=== PATIENT | female | born 1985 | race Caucasian/White ===

== ENCOUNTER 2017-10-19 09:38 | Emergency (ER) | payer SELFPAY ==
[~2017-10-19] VITALS: Ht 167.6 cm; Wt 87.2 kg
[2017-10-19 10:26] LABS: HEMATOCRIT 38.7 % (36.0-46.0); HEMOGLOBIN 13.6 G/DL (11.9-15.5); MCH 29.3 PG (29.0-34.0); MCHC 35.1 G/DL (30.0-36.0); MCV 83.4 FL (83-99); PLATELET COUNT 297 K/uL (156-360); RBC DIS.WIDTH-CV 12.1 % (11.8-14.6); RED BLOOD COUNT 4.64 M/uL (3.80-5.20); WHITE BLOOD COUNT 15.5 K/uL (4.1-10.2)
[2017-10-19 10:36] LABS: CHLORIDE 94 mEq/L (99-109); POTASSIUM 3.7 mEq/L (3.7-5.4); SODIUM 133 mEq/L (136-147)
[2017-10-19 11:15] LABS: ERTH.SED.RATE 104 MM/HR (0-20)
[2017-10-19] MEDS ORDERED: BACTRIM,SEPT1 TABLET PO (11:16)
[2017-10-19 11:25] LABS: C-REACTIVE PROTEIN 120.4 MG/L (0-10); CREATININE 0.5 MG/DL (0.6-1.3); GFR ESTIMATE (CALCULATED) > 59 mL/min/; GLUCOSE 549 mg/dL (70-99); UREA NITROGEN (BUN) 7 mg/dL (9-23)
[2017-10-19 12:37] VITALS: BP 144/90
== END 2017-10-19 12:40 | disposition home or self-care (01) ==
LOC: EME 09:38
PROVIDERS: Emergency Medicine Emergency Medical Services
PROC: 0H9NXZZ Drainage of Left Foot Skin, External Approach (ICD-10-PCS; principal; 2017-10-19)
DX: L02.612 Cutaneous abscess of left foot (principal); B95.61 Methicillin susceptible Staphylococcus aureus infection as the cause of diseases classified elsewhere; B95.1 Streptococcus, group B, as the cause of diseases classified elsewhere; Z16.29 Resistance to other single specified antibiotic; L03.116 Cellulitis of left lower limb; E11.9 Type 2 diabetes mellitus without complications; Z83.3 Family history of diabetes mellitus; Z88.0 Allergy status to penicillin
CPT/HCPCS: 73630; 80048; 85027; 85651; 86140; 87070; 87075; 87077; 87147; 87186; 87205; 99281; 99285

== ENCOUNTER 2017-10-28 10:46 | Inpatient (IN) | payer SELFPAY ==
[~2017-10-28] VITALS: Ht 167.6 cm; Wt 88.6 kg
[~2017-10-28 10:46] MED LIST: BACTRIM,SEPT1 TABLET PO
[2017-10-28 11:56] LABS: BASOPHIL (%) 0.5 % (0-1); BASOPHIL COUNT 0.1 K/uL (0-0.1); EOSINOPHIL (%) 0.8 % (0-5); EOSINOPHIL COUNT 0.1 K/uL (0-0.3); HEMATOCRIT 40.2 % (36.0-46.0); HEMOGLOBIN 13.7 G/DL (11.9-15.5); IMMATURE GRANULOCYTE (%) 1.3 % (0.0-0.7); LYMPHOCYTE (%) 18.3 % (15-42); MCHC 34.1 G/DL (30.0-36.0); MONOCYTE (%) 7.5 % (3-12); MONOCYTE COUNT 0.8 K/uL (0-0.8); NEUTROPHIL (%) 71.6 % (45-76); PLATELET COUNT 420 K/uL (156-360); RBC DIS.WIDTH-CV 11.8 % (11.8-14.6); RBC DIS.WIDTH-SD 35.2 % (39-53); WHITE BLOOD COUNT 11.1 K/uL (4.1-10.2)
[2017-10-28 12:07] LABS: CHLORIDE 95 mEq/L (99-109); POTASSIUM 3.7 mEq/L (3.7-5.4); SODIUM 132 mEq/L (136-147)
[2017-10-28 12:08] LABS: GLUCOSE 350 mg/dL (70-99)
[2017-10-28 12:12] LABS: CREATININE 0.7 mg/dL (0.6-1.3); GFR ESTIMATE (CALCULATED) > 59 mL/min/
[2017-10-28 12:13] LABS: UREA NITROGEN (BUN) 8 mg/dL (9-23)
[2017-10-28 13:58] LABS: APPEARANCE CLEAR ((CLEAR)); BILIRUBIN NEGATIVE; BLOOD NEGATIVE; COLOR YELLOW ((YELLOW)); GLUCOSE (STRIP) >=500; KETONES NEGATIVE; LEUKOCYTES TRACE; NITRITE NEGATIVE; PROTEIN (STRIP) NEGATIVE; SPECIFIC GRAVITY 1.041 (1.000-1.030); UROBILINOGEN 0.2 MG/DL (0.2-1.0)
[2017-10-28] MEDS ORDERED: JANUMET 50/11 TABLET PO (14:03)
[2017-10-28] MEDS ORDERED: MULTI VITAMIN1 EACH PO (14:04)
[2017-10-28] MEDS ORDERED: LEVOFLOXACIN500 MG PO (14:04)
[2017-10-28] MEDS ORDERED: SUPER B COMPL400 MCG PO (14:04)
[2017-10-28] MEDS ORDERED: VITAMIN C250 MG PO (14:04)
[2017-10-28 14:12] LABS: BACTERIA NONE SEEN /HPF; EPITHELIAL CELLS RARE /HPF; MUCUS TRACE /LPF; UCUL ADDED? NO; WHITE BLOOD CELLS 0-5 /HPF (0-5)
[2017-10-28 15:00] VITALS: BP 124/75
[2017-10-28 19:31] VITALS: BP 123/75
[2017-10-28 23:56] VITALS: BP 133/80
[2017-10-29 03:59] VITALS: BP 134/80
[2017-10-29 06:28] LABS: BASOPHIL (%) 0.7 % (0-1); BASOPHIL COUNT 0.1 K/uL (0-0.1); EOSINOPHIL (%) 0.5 % (0-5); EOSINOPHIL COUNT 0.1 K/uL (0-0.3); HEMATOCRIT 36.1 % (36.0-46.0); HEMOGLOBIN 12.2 G/DL (11.9-15.5); IMMATURE GRANULOCYTE (%) 1.2 % (0.0-0.7); LYMPHOCYTE (%) 12.8 % (15-42); LYMPHOCYTE COUNT 1.7 K/uL (1.0-2.8); MCH 27.7 PG (29.0-34.0); MCHC 33.8 G/DL (30.0-36.0); MONOCYTE (%) 10.8 % (3-12); MONOCYTE COUNT 1.4 K/uL (0-0.8); NEUTROPHIL COUNT 9.6 K/uL (1.8-6.4); PLATELET COUNT 344 K/uL (156-360); RBC DIS.WIDTH-CV 11.9 % (11.8-14.6); RBC DIS.WIDTH-SD 35.9 % (39-53); WHITE BLOOD COUNT 12.9 K/uL (4.1-10.2)
[2017-10-29 06:51] LABS: CHLORIDE 99 MEQ/L (99-109); CREATININE 1.1 MG/DL (0.6-1.3); GFR ESTIMATE (CALCULATED) > 59 mL/min/; GLUCOSE 329 mg/dL (70-99); POTASSIUM 4.1 MEQ/L (3.7-5.4); SODIUM 133 MEQ/L (136-147); UREA NITROGEN (BUN) 13 mg/dL (9-23)
[2017-10-29 07:17] VITALS: BP 133/76
[2017-10-29 11:16] VITALS: BP 133/79
[2017-10-29 15:18] VITALS: BP 123/70
[2017-10-29 19:28] VITALS: BP 139/80
[2017-10-29 23:41] VITALS: BP 138/79
[2017-10-30 02:09] LABS: BASOPHIL (%) 0.5 % (0-1); BASOPHIL COUNT 0.1 K/uL (0-0.1); EOSINOPHIL (%) 0.7 % (0-5); EOSINOPHIL COUNT 0.1 K/uL (0-0.3); HEMATOCRIT 34.7 % (36.0-46.0); IMMATURE GRANULOCYTE (%) 0.9 % (0.0-0.7); LYMPHOCYTE (%) 15.7 % (15-42); MCH 28.3 PG (29.0-34.0); MCHC 34.6 G/DL (30.0-36.0); MCV 81.8 FL (83-99); MONOCYTE (%) 9.5 % (3-12); MONOCYTE COUNT 1.2 K/uL (0-0.8); NEUTROPHIL (%) 72.7 % (45-76); NEUTROPHIL COUNT 9.4 K/uL (1.8-6.4); PLATELET COUNT 328 K/uL (156-360); RBC DIS.WIDTH-CV 11.9 % (11.8-14.6); RBC DIS.WIDTH-SD 35.7 % (39-53); RED BLOOD COUNT 4.24 M/uL (3.80-5.20); WHITE BLOOD COUNT 12.9 K/uL (4.1-10.2)
[2017-10-30 02:20] LABS: CHLORIDE 103 mEq/L (99-109); POTASSIUM 3.5 mEq/L (3.7-5.4); SODIUM 136 mEq/L (136-147)
[2017-10-30 02:22] LABS: GLUCOSE 262 mg/dL (70-99)
[2017-10-30 02:26] LABS: CREATININE 1.3 mg/dL (0.6-1.3); GFR ESTIMATE (CALCULATED) 50 mL/min/
[2017-10-30 02:27] LABS: UREA NITROGEN (BUN) 15 mg/dL (9-23)
[2017-10-30 03:58] VITALS: BP 138/79
[2017-10-30 06:55] VITALS: BP 131/76
[2017-10-30 11:53] VITALS: BP 130/81
[2017-10-30 13:58] LABS: CREATININE 1.3 MG/DL (0.6-1.3); VANCOMYCIN, TROUGH 15.3 MCG/ML (10-20)
[2017-10-30 15:39] VITALS: BP 163/94
[2017-10-30 23:05] VITALS: BP 160/90
[2017-10-31 03:14] VITALS: BP 158/96
[2017-10-31 06:14] LABS: BASOPHIL (%) 0.6 % (0-1); BASOPHIL COUNT 0.1 K/uL (0-0.1); EOSINOPHIL (%) 1.1 % (0-5); EOSINOPHIL COUNT 0.1 K/uL (0-0.3); HEMATOCRIT 33.4 % (36.0-46.0); IMMATURE GRANULOCYTE (%) 0.7 % (0.0-0.7); LYMPHOCYTE (%) 20.8 % (15-42); LYMPHOCYTE COUNT 2.5 K/uL (1.0-2.8); MCH 27.5 PG (29.0-34.0); MCHC 32.9 G/DL (30.0-36.0); MCV 83.5 FL (83-99); MONOCYTE (%) 8.8 % (3-12); MONOCYTE COUNT 1.1 K/uL (0-0.8); NEUTROPHIL COUNT 8.1 K/uL (1.8-6.4); PLATELET COUNT 301 K/uL (156-360); RBC DIS.WIDTH-CV 12.1 % (11.8-14.6); WHITE BLOOD COUNT 11.9 K/uL (4.1-10.2)
[2017-10-31 06:36] LABS: CHLORIDE 105 MEQ/L (99-109); CREATININE 1.1 MG/DL (0.6-1.3); GFR ESTIMATE (CALCULATED) > 59 mL/min/; GLUCOSE 190 mg/dL (70-99); POTASSIUM 3.7 MEQ/L (3.7-5.4); SODIUM 136 MEQ/L (136-147); UREA NITROGEN (BUN) 13 mg/dL (9-23); VANCOMYCIN, TROUGH 14.2 MCG/ML (10-20)
[2017-10-31 08:35] VITALS: BP 131/82
[2017-10-31 10:23] LABS: HEMOGLOBIN A1c (GLYCOHEMOGLOB) 12.8 % (Below 5.7)
[2017-10-31 15:35] VITALS: BP 138/79
[2017-10-31 19:30] VITALS: BP 138/85
[2017-10-31 23:16] VITALS: BP 150/88
[2017-11-01 04:16] VITALS: BP 135/85
[2017-11-01 07:35] VITALS: BP 139/86
[2017-11-01 09:45] LABS: BASOPHIL (%) 0.5 % (0-1); EOSINOPHIL (%) 1.5 % (0-5); EOSINOPHIL COUNT 0.1 K/uL (0-0.3); HEMATOCRIT 34.5 % (36.0-46.0); HEMOGLOBIN 11.4 G/DL (11.9-15.5); IMMATURE GRANULOCYTE (%) 0.6 % (0.0-0.7); LYMPHOCYTE (%) 17.8 % (15-42); LYMPHOCYTE COUNT 1.4 K/uL (1.0-2.8); MCH 27.9 PG (29.0-34.0); MCV 84.4 FL (83-99); MONOCYTE (%) 8.6 % (3-12); MONOCYTE COUNT 0.7 K/uL (0-0.8); NEUTROPHIL COUNT 5.6 K/uL (1.8-6.4); PLATELET COUNT 307 K/uL (156-360); RBC DIS.WIDTH-CV 12.2 % (11.8-14.6); RBC DIS.WIDTH-SD 37.2 % (39-53); RED BLOOD COUNT 4.09 M/uL (3.80-5.20); WHITE BLOOD COUNT 7.9 K/uL (4.1-10.2)
[2017-11-01 10:09] LABS: CHLORIDE 102 MEQ/L (99-109); CREATININE 1.1 MG/DL (0.6-1.3); GFR ESTIMATE (CALCULATED) > 59 mL/min/; GLUCOSE 207 mg/dL (70-99); POTASSIUM 3.6 MEQ/L (3.7-5.4); SODIUM 138 MEQ/L (136-147); UREA NITROGEN (BUN) 12 mg/dL (9-23)
[2017-11-01 15:37] VITALS: BP 153/83
[2017-11-01 23:36] VITALS: BP 142/98
[2017-11-02 07:49] VITALS: BP 128/73
[2017-11-02 16:17] VITALS: BP 136/80
[2017-11-03 00:43] VITALS: BP 169/96
[2017-11-03 06:10] LABS: BASOPHIL (%) 0.7 % (0-1); BASOPHIL COUNT 0.1 K/uL (0-0.1); EOSINOPHIL (%) 2.2 % (0-5); EOSINOPHIL COUNT 0.2 K/uL (0-0.3); HEMATOCRIT 33.4 % (36.0-46.0); HEMOGLOBIN 11.1 G/DL (11.9-15.5); IMMATURE GRANULOCYTE (%) 0.5 % (0.0-0.7); LYMPHOCYTE (%) 25.9 % (15-42); LYMPHOCYTE COUNT 2.6 K/uL (1.0-2.8); MCH 27.8 PG (29.0-34.0); MCHC 33.2 G/DL (30.0-36.0); MCV 83.7 FL (83-99); MONOCYTE (%) 9.8 % (3-12); NEUTROPHIL (%) 60.9 % (45-76); NEUTROPHIL COUNT 6.1 K/uL (1.8-6.4); PLATELET COUNT 303 K/uL (156-360); RBC DIS.WIDTH-SD 36.4 % (39-53); RED BLOOD COUNT 3.99 M/uL (3.80-5.20)
[2017-11-03 06:42] LABS: CHLORIDE 105 MEQ/L (99-109); GFR ESTIMATE (CALCULATED) > 59 mL/min/; GLUCOSE 145 mg/dL (70-99); POTASSIUM 3.9 MEQ/L (3.7-5.4); SODIUM 136 MEQ/L (136-147); UREA NITROGEN (BUN) 10 mg/dL (9-23)
[2017-11-03 07:07] VITALS: BP 145/95
[2017-11-03 16:30] VITALS: BP 166/90
[2017-11-03 19:16] VITALS: BP 168/80
[2017-11-03 23:26] VITALS: BP 164/80
[2017-11-04 06:34] LABS: CHLORIDE 105 MEQ/L (99-109); CREATININE 1.1 MG/DL (0.6-1.3); GFR ESTIMATE (CALCULATED) > 59 mL/min/; GLUCOSE 149 mg/dL (70-99); SODIUM 140 MEQ/L (136-147); UREA NITROGEN (BUN) 10 mg/dL (9-23)
[2017-11-04 07:52] VITALS: BP 119/75
[2017-11-04] MEDS ORDERED: CEFTRIAXONE2 G1 IV (12:26)
[2017-11-04] MEDS ORDERED: GLIPIZIDE5 MG PO (12:27)
[2017-11-04] MEDS ORDERED: LISINOPRIL5 MG PO (12:27)
[2017-11-04] MEDS ORDERED: METFORMIN HCL1000 MG PO (12:27)
== END 2017-11-04 16:29 | disposition home health service (06) | DRG 580 ==
LOC: EME 10:46 → EDOF 13:42 → 2EASTP 13:42 → ENRESERV 13:48 → 2EASTP 15:02
PROVIDERS: Family Medicine
DX: L03.116 Cellulitis of left lower limb (principal); L02.612 Cutaneous abscess of left foot; M86.172 Other acute osteomyelitis, left ankle and foot; L03.032 Cellulitis of left toe; E11.621 Type 2 diabetes mellitus with foot ulcer; L97.526 Non-pressure chronic ulcer of other part of left foot with bone involvement without evidence of necrosis; B95.1 Streptococcus, group B, as the cause of diseases classified elsewhere; E66.9 Obesity, unspecified; I10 Essential (primary) hypertension; E11.42 Type 2 diabetes mellitus with diabetic polyneuropathy; E11.628 Type 2 diabetes mellitus with other skin complications; E11.622 Type 2 diabetes mellitus with other skin ulcer; Z79.84 Long term (current) use of oral hypoglycemic drugs; Z88.0 Allergy status to penicillin; Z68.31 Body mass index [BMI] 31.0-31.9, adult; Z83.3 Family history of diabetes mellitus; Z82.3 Family history of stroke; Z81.8 Family history of other mental and behavioral disorders
CPT/HCPCS: 73630; 73720; 76937; 80048; 80202; 81003; 82565; 82948; 83036; 83605; 84702; 85025; 87040; 87070; 87075; 87077; 87186; 87205; 99281; 99285; J0690; J0696; J1170; J1644; J1815; J2405; J2543; J2710; J3010; J3370; J7030; J7050; J7120; J7643

== ENCOUNTER 2017-12-08 07:01 | Emergency (ER) | payer OTHER ==
[~2017-12-08] VITALS: Ht 167.6 cm; Wt 83.0 kg
[~2017-12-08 07:01] MED LIST changes: +CEFTRIAXONE2 G1 IV; +GLIPIZIDE5 MG PO; +JANUMET 50/11 TABLET PO; +LEVOFLOXACIN500 MG PO; +LISINOPRIL5 MG PO; +METFORMIN HCL1000 MG PO; +MULTI VITAMIN1 EACH PO; +SUPER B COMPL400 MCG PO; +VITAMIN C250 MG PO
[2017-12-08 09:21] LABS: HEMATOCRIT 34.5 % (36.0-46.0); HEMOGLOBIN 12.2 G/DL (11.9-15.5); MCHC 35.4 G/DL (30.0-36.0); MCV 79.1 FL (83-99); PLATELET COUNT 300 K/uL (156-360); RBC DIS.WIDTH-CV 12.9 % (11.8-14.6); RBC DIS.WIDTH-SD 36.7 % (39-53); RED BLOOD COUNT 4.36 M/uL (3.80-5.20); WHITE BLOOD COUNT 9.1 K/uL (4.1-10.2)
[2017-12-08 09:31] LABS: CHLORIDE 106 mEq/L (99-109); POTASSIUM 3.5 mEq/L (3.7-5.4); SODIUM 139 mEq/L (136-147)
[2017-12-08 09:32] LABS: GLUCOSE 156 mg/dL (70-99)
[2017-12-08 09:36] LABS: CREATININE 0.8 mg/dL (0.6-1.3); GFR ESTIMATE (CALCULATED) > 59 mL/min/
[2017-12-08 09:37] LABS: UREA NITROGEN (BUN) 10 mg/dL (9-23)
[2017-12-08 10:07] LABS: APPEARANCE SL.HAZY ((CLEAR)); BILIRUBIN NEGATIVE; BLOOD NEGATIVE; COLOR YELLOW ((YELLOW)); GLUCOSE (STRIP) NEGATIVE; KETONES 20; LEUKOCYTES SMALL; NITRITE NEGATIVE; PROTEIN (STRIP) 30; SPECIFIC GRAVITY 1.017 (1.000-1.030); UROBILINOGEN 0.2 MG/DL (0.2-1.0)
[2017-12-08 10:10] LABS: BACTERIA RARE /HPF; EPITHELIAL CELLS 2+ /HPF; HYALINE CASTS 20-30 /LPF; MUCUS TRACE /LPF; RED BLOOD CELLS 0-5 /HPF (0-5); UCUL ADDED? YES
[2017-12-08 13:02] VITALS: BP 143/104
== END 2017-12-08 13:13 | disposition home or self-care (01) ==
LOC: EME 07:01
PROVIDERS: Emergency Medicine
DX: R11.2 Nausea with vomiting, unspecified (principal); E11.9 Type 2 diabetes mellitus without complications; Z88.0 Allergy status to penicillin
CPT/HCPCS: 71045; 74019; 80048; 81003; 83605; 85027; 87086; 99281; 99285; J2405

== ENCOUNTER 2017-12-19 15:29 | Emergency (ER) | payer OTHER ==
[~2017-12-19] VITALS: Ht 167.6 cm; Wt 78.0 kg
[2017-12-19 16:27] LABS: HEMATOCRIT 35.8 % (36.0-46.0); HEMOGLOBIN 12.5 G/DL (11.9-15.5); MCH 27.7 PG (29.0-34.0); MCHC 34.9 G/DL (30.0-36.0); MCV 79.2 FL (83-99); PLATELET COUNT 322 K/uL (156-360); RBC DIS.WIDTH-CV 12.9 % (11.8-14.6); RED BLOOD COUNT 4.52 M/uL (3.80-5.20); WHITE BLOOD COUNT 11.6 K/uL (4.1-10.2)
[2017-12-19 16:37] LABS: ALBUMIN 4.1 g/dL (3.2-4.8); CHLORIDE 95 mEq/L (99-109); POTASSIUM 3.2 mEq/L (3.7-5.4); SODIUM 136 mEq/L (136-147)
[2017-12-19 16:39] LABS: GLUCOSE 136 mg/dL (70-99)
[2017-12-19 16:40] LABS: TOTAL PROTEIN 7.9 g/dL (6.4-8.3)
[2017-12-19 16:41] LABS: TOTAL BILIRUBIN 0.6 mg/dL (0.0-1.0)
[2017-12-19 16:43] LABS: ALKALINE PHOSPHATASE 59 IU/L (3-129); CREATININE 1.1 mg/dL (0.6-1.3); GFR ESTIMATE (CALCULATED) > 59 mL/min/
[2017-12-19 16:44] LABS: UREA NITROGEN (BUN) 14 mg/dL (9-23)
[2017-12-19 16:45] LABS: AST (GOT) 33 IU/L (2-34); DIRECT BILIRUBIN 0.2 mg/dL (0.0-0.3)
[2017-12-19 16:46] LABS: ALT (GPT) 71 IU/L (3-49); LIPASE 68 U/L (1.0-51.0)
[2017-12-19 16:52] LABS: QUANTITATIVE HCG < 4.0 MIU/ML
[2017-12-19 17:22] LABS: APPEARANCE SL.HAZY ((CLEAR)); BILIRUBIN NEGATIVE; BLOOD NEGATIVE; GLUCOSE (STRIP) NEGATIVE; KETONES NEGATIVE; LEUKOCYTES TRACE; NITRITE NEGATIVE; PROTEIN (STRIP) NEGATIVE; SPECIFIC GRAVITY 1.005 (1.000-1.030); UROBILINOGEN 0.2 MG/DL (0.2-1.0)
[2017-12-19 17:32] LABS: COLOR YELLOW ((YELLOW))
[2017-12-19 17:37] LABS: BACTERIA NONE SEEN /HPF; EPITHELIAL CELLS RARE /HPF; MUCUS TRACE /LPF; RED BLOOD CELLS 0-5 /HPF (0-5); UCUL ADDED? NO; WHITE BLOOD CELLS 0-5 /HPF (0-5)
[2017-12-19] MEDS ORDERED: ZANTAC150 MG PO (17:42)
[2017-12-19 18:03] VITALS: BP 152/99
== END 2017-12-19 18:08 | disposition home or self-care (01) ==
LOC: EME 15:29
PROVIDERS: Physician Assistant
DX: E86.0 Dehydration (principal); R11.2 Nausea with vomiting, unspecified; I95.1 Orthostatic hypotension; E11.9 Type 2 diabetes mellitus without complications; I10 Essential (primary) hypertension; Z88.0 Allergy status to penicillin
CPT/HCPCS: 80048; 80076; 81003; 83690; 84702; 85027; 93005; 99281; 99285; J7030

== ENCOUNTER 2017-12-22 21:14 | Emergency (ER) | payer OTHER ==
[~2017-12-22] VITALS: Ht 167.6 cm; Wt 79.3 kg
[~2017-12-22 21:14] MED LIST changes: +ZANTAC150 MG PO
[2017-12-22 23:00] LABS: HEMATOCRIT 33.2 % (36.0-46.0); HEMOGLOBIN 11.8 G/DL (11.9-15.5); MCH 27.8 PG (29.0-34.0); MCHC 35.5 G/DL (30.0-36.0); MCV 78.1 FL (83-99); PLATELET COUNT 373 K/uL (156-360); RBC DIS.WIDTH-CV 13.1 % (11.8-14.6); RED BLOOD COUNT 4.25 M/uL (3.80-5.20); WHITE BLOOD COUNT 11.4 K/uL (4.1-10.2)
[2017-12-22 23:07] LABS: ALBUMIN 4.1 g/dL (3.2-4.8)
[2017-12-22 23:08] LABS: CHLORIDE 101 mEq/L (99-109); POTASSIUM 3.1 mEq/L (3.7-5.4); SODIUM 138 mEq/L (136-147)
[2017-12-22 23:10] LABS: GLUCOSE 112 mg/dL (70-99); TOTAL PROTEIN 7.3 g/dL (6.4-8.3)
[2017-12-22 23:12] LABS: TOTAL BILIRUBIN 0.6 mg/dL (0.0-1.0)
[2017-12-22 23:13] LABS: ALKALINE PHOSPHATASE 57 IU/L (3-129)
[2017-12-22 23:14] LABS: CREATININE 0.9 mg/dL (0.6-1.3); GFR ESTIMATE (CALCULATED) > 59 mL/min/
[2017-12-22 23:15] LABS: UREA NITROGEN (BUN) 12 mg/dL (9-23)
[2017-12-22 23:17] LABS: ALT (GPT) 35 IU/L (3-49)
[2017-12-22 23:24] LABS: QUANTITATIVE HCG < 4.0 MIU/ML
[2017-12-22 23:39] LABS: AST (GOT) 14 IU/L (2-34)
[2017-12-23 00:04] LABS: TROP-I INTERPRETATION NEGATIVE; TROPONIN-I < 0.01 ng/mL (0.0-0.30)
[2017-12-23 00:08] LABS: APPEARANCE CLEAR ((CLEAR)); BILIRUBIN NEGATIVE; BLOOD NEGATIVE; COLOR YELLOW ((YELLOW)); GLUCOSE (STRIP) NEGATIVE; KETONES NEGATIVE; LEUKOCYTES NEGATIVE; NITRITE NEGATIVE; PROTEIN (STRIP) NEGATIVE; SPECIFIC GRAVITY 1.013 (1.000-1.030); UCUL ADDED? NO; UROBILINOGEN 0.2 MG/DL (0.2-1.0)
[2017-12-23 01:48] LABS: LIPASE 45 U/L (1.0-51.0)
[2017-12-23] MEDS ORDERED: NORCO 5/3251 TABLET PO (03:45)
[2017-12-23] MEDS ORDERED: CIPRO500 MG PO (03:45)
[2017-12-23] MEDS ORDERED: ZOFRAN4 MG PO (03:45)
[2017-12-23] MEDS ORDERED: FLAGYL500 MG PO (03:45)
[2017-12-23 03:52] VITALS: BP 156/97
== END 2017-12-23 03:53 | disposition home or self-care (01) ==
LOC: EXP 21:14 → EME 21:14 → EXP 12-23 03:53
DX: K80.20 Calculus of gallbladder without cholecystitis without obstruction (principal); R11.2 Nausea with vomiting, unspecified; E87.6 Hypokalemia; R42 Dizziness and giddiness; Z98.890 Other specified postprocedural states; I10 Essential (primary) hypertension; E11.9 Type 2 diabetes mellitus without complications; Z79.84 Long term (current) use of oral hypoglycemic drugs; Z88.0 Allergy status to penicillin
CPT/HCPCS: 74177; 76705; 80053; 81003; 83690; 84484; 84702; 85027; 93005; 99281; 99284; J2405; J7030

== ENCOUNTER → 2018-01-01 | Outpatient (CLI) | payer OTHER ==
[~2018-01-01] MED LIST changes: +AMARYL2 MG PO; +CIPRO500 MG PO; +FLAGYL500 MG PO; +K-DUR20 MEQ PO; +KEFLEX500 MG PO; +NORCO 5/3251 TABLET PO; +PERCOCET 5/31 TABLET PO; +ZOFRAN ODT4 MG PO; +ZOFRAN4 MG PO
== END | disposition home or self-care (01) ==
LOC: NUC 09:08
DX: K82.8 Other specified diseases of gallbladder (principal)
CPT/HCPCS: 78226; A9537; J2270

== ENCOUNTER 2018-01-02 19:38 | Emergency (ER) | payer OTHER ==
[~2018-01-02] VITALS: Ht 167.6 cm; Wt 76.0 kg
[~2018-01-02 19:38] MED LIST changes: -AMARYL2 MG PO; -K-DUR20 MEQ PO; -KEFLEX500 MG PO; -PERCOCET 5/31 TABLET PO; -ZOFRAN ODT4 MG PO
[2018-01-02 20:03] LABS: HEMATOCRIT 34.2 % (36.0-46.0); MCH 27.4 PG (29.0-34.0); MCHC 35.1 G/DL (30.0-36.0); MCV 78.1 FL (83-99); PLATELET COUNT 318 K/uL (156-360); RBC DIS.WIDTH-CV 13.6 % (11.8-14.6); RBC DIS.WIDTH-SD 38.5 % (39-53); RED BLOOD COUNT 4.38 M/uL (3.80-5.20); WHITE BLOOD COUNT 7.4 K/uL (4.1-10.2)
[2018-01-02 20:14] LABS: ALBUMIN 4.1 g/dL (3.2-4.8)
[2018-01-02 20:15] LABS: CHLORIDE 99 mEq/L (99-109); POTASSIUM 2.9 mEq/L (3.7-5.4); SODIUM 140 mEq/L (136-147)
[2018-01-02 20:17] LABS: GLUCOSE 95 mg/dL (70-99); TOTAL PROTEIN 7.2 g/dL (6.4-8.3)
[2018-01-02 20:19] LABS: TOTAL BILIRUBIN 0.4 mg/dL (0.0-1.0)
[2018-01-02 20:19] LABS: APPEARANCE SL.HAZY ((CLEAR)); BILIRUBIN SMALL; BLOOD NEGATIVE; COLOR AMBER ((YELLOW)); GLUCOSE (STRIP) NEGATIVE; KETONES NEGATIVE; LEUKOCYTES MODERATE; NITRITE NEGATIVE; PROTEIN (STRIP) 30; SPECIFIC GRAVITY 1.027 (1.000-1.030)
[2018-01-02 20:20] LABS: ALKALINE PHOSPHATASE 39 IU/L (3-129)
[2018-01-02 20:21] LABS: CREATININE 1.2 mg/dL (0.6-1.3); GFR ESTIMATE (CALCULATED) 55 mL/min/
[2018-01-02 20:22] LABS: AST (GOT) 46 IU/L (2-34); UREA NITROGEN (BUN) 8 mg/dL (9-23)
[2018-01-02 20:24] LABS: ALT (GPT) 53 IU/L (3-49)
[2018-01-02] MEDS ORDERED: AMARYL2 MG PO (20:28)
[2018-01-02] MEDS ORDERED: KEFLEX500 MG PO (20:29)
[2018-01-02 20:31] LABS: QUANTITATIVE HCG < 4.0 MIU/ML
[2018-01-02 20:41] LABS: BACTERIA RARE /HPF; CELLULAR CASTS 0-5 /LPF; EPITHELIAL CELLS 2+ /HPF; HYALINE CASTS TNTC /LPF; MUCUS 2+ /LPF; RED BLOOD CELLS 0-5 /HPF (0-5); UCUL ADDED? YES; WHITE BLOOD CELLS 15-20 /HPF (0-5)
[2018-01-02 21:24] LABS: LIPASE 58 U/L (1.0-51.0)
[2018-01-02] MEDS ORDERED: PERCOCET 5/31 TABLET PO (23:37)
[2018-01-02] MEDS ORDERED: ZOFRAN ODT4 MG PO (23:37)
[2018-01-02 23:58] VITALS: BP 124/79
== END 2018-01-03 00:11 | disposition home or self-care (01) ==
LOC: EME 19:38
DX: K80.20 Calculus of gallbladder without cholecystitis without obstruction (principal); N39.0 Urinary tract infection, site not specified; E11.9 Type 2 diabetes mellitus without complications; E87.6 Hypokalemia; Z88.0 Allergy status to penicillin
CPT/HCPCS: 76705; 80053; 81003; 83690; 84702; 85027; 87086; 93005; 99281; 99285; J0696

== ENCOUNTER 2018-01-08 22:11 | Emergency (ER) | payer OTHER ==
[~2018-01-08] VITALS: Ht 167.6 cm; Wt 74.4 kg
[~2018-01-08 22:11] MED LIST changes: +AMARYL2 MG PO; +KEFLEX500 MG PO; +PERCOCET 5/31 TABLET PO; +ZOFRAN ODT4 MG PO
[2018-01-08 22:32] LABS: HEMATOCRIT 35.6 % (36.0-46.0); HEMOGLOBIN 12.6 G/DL (11.9-15.5); MCH 27.3 PG (29.0-34.0); MCHC 35.4 G/DL (30.0-36.0); MCV 77.2 FL (83-99); PLATELET COUNT 312 K/uL (156-360); RBC DIS.WIDTH-CV 13.7 % (11.8-14.6); RBC DIS.WIDTH-SD 38.4 % (39-53); RED BLOOD COUNT 4.61 M/uL (3.80-5.20)
[2018-01-08 22:48] LABS: CHLORIDE 95 mEq/L (99-109); POTASSIUM 2.8 mEq/L (3.7-5.4); SODIUM 136 mEq/L (136-147)
[2018-01-08 22:50] LABS: GLUCOSE 73 mg/dL (70-99)
[2018-01-08 22:54] LABS: CREATININE 1.3 mg/dL (0.6-1.3); GFR ESTIMATE (CALCULATED) 50 mL/min/
[2018-01-08 22:55] LABS: UREA NITROGEN (BUN) 5 mg/dL (9-23)
[2018-01-08 23:02] LABS: MAGNESIUM 1.5 mg/dL (1.3-2.7); QUANTITATIVE HCG < 4.0 MIU/ML
[2018-01-08 23:26] LABS: TROP-I INTERPRETATION NEGATIVE; TROPONIN-I < 0.01 ng/mL (0.0-0.30)
[2018-01-09 00:04] LABS: APPEARANCE CLEAR ((CLEAR)); BILIRUBIN NEGATIVE; BLOOD NEGATIVE; COLOR YELLOW ((YELLOW)); GLUCOSE (STRIP) NEGATIVE; KETONES NEGATIVE; LEUKOCYTES NEGATIVE; NITRITE NEGATIVE; PROTEIN (STRIP) NEGATIVE; SPECIFIC GRAVITY 1.006 (1.000-1.030); UCUL ADDED? NO; UROBILINOGEN 0.2 MG/DL (0.2-1.0)
[2018-01-09] MEDS ORDERED: K-DUR20 MEQ PO (01:08)
[2018-01-09 01:17] VITALS: BP 126/74
== END 2018-01-09 01:18 | disposition home or self-care (01) ==
LOC: EME 22:11
PROVIDERS: Emergency Medicine
DX: E86.0 Dehydration (principal); E87.6 Hypokalemia; S09.90XA Unspecified injury of head, initial encounter; W19.XXXA Unspecified fall, initial encounter; E11.9 Type 2 diabetes mellitus without complications; K21.9 Gastro-esophageal reflux disease without esophagitis; Z88.0 Allergy status to penicillin
CPT/HCPCS: 70450; 80048; 81003; 83735; 84484; 84702; 85027; 93005; J7030

== ENCOUNTER → 2018-01-12 | Outpatient (CLI) | payer OTHER ==
[~2018-01-12] VITALS: Ht 167.6 cm; Wt 75.7 kg
[~2018-01-12] MED LIST changes: +K-DUR20 MEQ PO
== END | disposition home or self-care (01) ==
LOC: AMB 11:45
PROVIDERS: Internal Medicine
PROC: 0DB68ZX Excision of Stomach, Via Natural or Artificial Opening Endoscopic, Diagnostic (ICD-10-PCS; principal; 2018-01-12)
DX: K29.70 Gastritis, unspecified, without bleeding (principal); I10 Essential (primary) hypertension; E11.9 Type 2 diabetes mellitus without complications; K21.9 Gastro-esophageal reflux disease without esophagitis; Z79.84 Long term (current) use of oral hypoglycemic drugs; Z88.0 Allergy status to penicillin
CPT/HCPCS: 82948; 84132; 88305; 88342 TC

== ENCOUNTER → 2018-01-16 | Outpatient (CLI) | payer OTHER ==
[~2018-01-16] MED LIST changes: +GLUCOPHAGE1000 MG PO; +ZESTRIL5 MG PO
== END | disposition home or self-care (01) ==
LOC: CDC 10:37
DX: Z01.810 Encounter for preprocedural cardiovascular examination (principal); K80.20 Calculus of gallbladder without cholecystitis without obstruction; R94.31 Abnormal electrocardiogram [ECG] [EKG]
CPT/HCPCS: 93000

== ENCOUNTER 2018-01-21 15:50 | Observation (INO) | payer OTHER ==
[~2018-01-21] VITALS: Ht 167.6 cm; Wt 74.8 kg
[2018-01-21 17:15] LABS: HEMATOCRIT 32.7 % (36.0-46.0); HEMOGLOBIN 11.4 G/DL (11.9-15.5); MCH 27.3 PG (29.0-34.0); MCHC 34.9 G/DL (30.0-36.0); MCV 78.4 FL (83-99); PLATELET COUNT 313 K/uL (156-360); RBC DIS.WIDTH-CV 14.2 % (11.8-14.6); RBC DIS.WIDTH-SD 40.1 % (39-53); RED BLOOD COUNT 4.17 M/uL (3.80-5.20); WHITE BLOOD COUNT 6.6 K/uL (4.1-10.2)
[2018-01-21 17:27] LABS: ALBUMIN 4.1 g/dL (3.2-4.8); CHLORIDE 101 mEq/L (99-109); POTASSIUM 3.3 mEq/L (3.7-5.4); SODIUM 141 mEq/L (136-147)
[2018-01-21 17:28] LABS: AMYLASE 43 IU/L (1-118)
[2018-01-21 17:30] LABS: GLUCOSE 124 mg/dL (70-99); TOTAL PROTEIN 7.1 g/dL (6.4-8.3)
[2018-01-21 17:32] LABS: TOTAL BILIRUBIN 0.7 mg/dL (0.0-1.0)
[2018-01-21 17:33] LABS: ALKALINE PHOSPHATASE 62 IU/L (3-129); CREATININE 0.7 mg/dL (0.6-1.3); GFR ESTIMATE (CALCULATED) > 59 mL/min/
[2018-01-21 17:33] LABS: APPEARANCE TURBID ((CLEAR)); BILIRUBIN NEGATIVE; BLOOD NEGATIVE; COLOR AMBER ((YELLOW)); GLUCOSE (STRIP) NEGATIVE; KETONES 20; LEUKOCYTES NEGATIVE; NITRITE NEGATIVE; PROTEIN (STRIP) 30; SPECIFIC GRAVITY 1.023 (1.000-1.030); UROBILINOGEN 0.2 MG/DL (0.2-1.0)
[2018-01-21 17:34] LABS: UREA NITROGEN (BUN) 7 mg/dL (9-23)
[2018-01-21 17:35] LABS: AST (GOT) 39 IU/L (2-34)
[2018-01-21 17:36] LABS: ALT (GPT) 76 IU/L (3-49)
[2018-01-21 17:37] LABS: LIPASE 37 U/L (1.0-51.0)
[2018-01-21 17:43] LABS: QUANTITATIVE HCG < 4.0 MIU/ML
[2018-01-21 18:37] LABS: EPITHELIAL CELLS RARE /HPF; RED BLOOD CELLS NONE SEEN /HPF (0-5); WHITE BLOOD CELLS NONE SEEN /HPF (0-5)
[2018-01-21 18:38] LABS: BACTERIA 1+ /HPF; MUCUS NONE SEEN /LPF; UCUL ADDED? NO
[2018-01-21 18:39] LABS: AMORPHOUS URATES CRYSTALS 2+; COARSE GRANULAR CASTS RARE /LPF
[2018-01-22 01:54] VITALS: BP 168/94
[2018-01-22 06:00] LABS: ALBUMIN 3.3 G/DL (3.2-4.8); ALKALINE PHOSPHATASE 41 IU/L (3-129); ALT (GPT) 54 IU/L (3-49); AST (GOT) 28 IU/L (2-34); CHLORIDE 103 MEQ/L (99-109); CREATININE 0.6 MG/DL (0.6-1.3); GFR ESTIMATE (CALCULATED) > 59 mL/min/; GLUCOSE 107 mg/dL (70-99); POTASSIUM 3.1 MEQ/L (3.7-5.4); SODIUM 142 MEQ/L (136-147); TOTAL BILIRUBIN 0.5 MG/DL (0.0-1.0); TOTAL PROTEIN 5.9 G/DL (6.4-8.3); UREA NITROGEN (BUN) 6 mg/dL (9-23)
[2018-01-22 07:42] VITALS: BP 126/61
[2018-01-22 11:26] VITALS: BP 163/103
[2018-01-22] MEDS ORDERED: HYDROCODON-ACE1 EAC7 PO (15:37)
[2018-01-22 16:08] VITALS: BP 181/99
[2018-01-22 16:46] VITALS: BP 140/80
[2018-01-23] MEDS ORDERED: PROMETHAZINE HC25 M1 PO (05:53)
[2018-01-23] MEDS ORDERED: GLUCOPHAGE1000 MG PO (05:55)
[2018-01-24 09:54] LABS: HEMOGLOBIN A1c (GLYCOHEMOGLOB) 5.9 % (Below 5.7)
== END 2018-01-22 18:36 | disposition home or self-care (01) ==
LOC: EME 15:50 → RME 15:50 → 4SOUTH 20:00 → EDOF 20:00 → ENRESERV 20:02 → 4SOUTH 01-22 01:43
PROVIDERS: Physician Assistant; Student in an Organized Health Care Education/Training Program
DX: K80.20 Calculus of gallbladder without cholecystitis without obstruction (principal); R11.2 Nausea with vomiting, unspecified; I10 Essential (primary) hypertension; K21.9 Gastro-esophageal reflux disease without esophagitis; E11.9 Type 2 diabetes mellitus without complications; Z88.0 Allergy status to penicillin; Z79.84 Long term (current) use of oral hypoglycemic drugs
CPT/HCPCS: 76705; 80053; 81003; 82150; 82948; 83036; 83690; 84702; 85027; 99281; 99285; G0378; J1815; J2405; J2765; J3010; J7030; J7120

== ENCOUNTER 2018-01-23 04:59 | Day surgery (SDC) | payer OTHER ==
[~2018-01-23] VITALS: Ht 167.6 cm; Wt 74.9 kg
[~2018-01-23 04:59] MED LIST changes: +HYDROCODON-ACE1 EAC7 PO
[2018-01-23] MEDS ORDERED: PROMETHAZINE HC25 M1 PO (05:53)
[2018-01-23] MEDS ORDERED: GLUCOPHAGE1000 MG PO (05:55)
[2018-01-23 06:00] VITALS: BP 186/109
[2018-01-23 10:00] VITALS: BP 183/104
[2018-01-23 17:15] VITALS: BP 163/92
[2018-01-23 19:59] VITALS: BP 138/82
[2018-01-24 00:32] VITALS: BP 170/93
[2018-01-24 03:50] VITALS: BP 142/80
[2018-01-24 06:59] LABS: BASOPHIL (%) 0.5 % (0-1); EOSINOPHIL (%) 0.4 % (0-5); HEMATOCRIT 30.7 % (36.0-46.0); HEMOGLOBIN 10.5 G/DL (11.9-15.5); IMMATURE GRANULOCYTE (%) 0.1 % (0.0-0.7); LYMPHOCYTE (%) 25.4 % (15-42); LYMPHOCYTE COUNT 1.9 K/uL (1.0-2.8); MCH 27.1 PG (29.0-34.0); MCHC 34.2 G/DL (30.0-36.0); MCV 79.3 FL (83-99); MONOCYTE (%) 10.2 % (3-12); MONOCYTE COUNT 0.8 K/uL (0-0.8); NEUTROPHIL (%) 63.4 % (45-76); NEUTROPHIL COUNT 4.8 K/uL (1.8-6.4); PLATELET COUNT 314 K/uL (156-360); RBC DIS.WIDTH-CV 14.1 % (11.8-14.6); RBC DIS.WIDTH-SD 40.8 % (39-53); RED BLOOD COUNT 3.87 M/uL (3.80-5.20); WHITE BLOOD COUNT 7.6 K/uL (4.1-10.2)
[2018-01-24 07:09] VITALS: BP 167/95
[2018-01-24 07:19] LABS: ALBUMIN 3.3 G/DL (3.2-4.8); ALKALINE PHOSPHATASE 52 IU/L (3-129); ALT (GPT) 76 IU/L (3-49); AST (GOT) 36 IU/L (2-34); CHLORIDE 97 MEQ/L (99-109); CREATININE 0.6 MG/DL (0.6-1.3); GFR ESTIMATE (CALCULATED) > 59 mL/min/; GLUCOSE 118 mg/dL (70-99); POTASSIUM 3.3 MEQ/L (3.7-5.4); SODIUM 138 MEQ/L (136-147); TOTAL BILIRUBIN 0.6 MG/DL (0.0-1.0); TOTAL PROTEIN 5.2 G/DL (6.4-8.3); UREA NITROGEN (BUN) 3 mg/dL (9-23)
[2018-01-24] MEDS ORDERED: NORCO 5/3251 TABLET PO (09:31)
== END 2018-01-24 10:55 | disposition home or self-care (01) ==
LOC: SDC → 2SOUTH 14:29 → ENRESERV 14:29 → 2EAST 17:03
PROVIDERS: Student in an Organized Health Care Education/Training Program
PROC: 0FT44ZZ Resection of Gallbladder, Percutaneous Endoscopic Approach (ICD-10-PCS; principal; 2018-01-23)
DX: K80.10 Calculus of gallbladder with chronic cholecystitis without obstruction (principal); I10 Essential (primary) hypertension; K21.9 Gastro-esophageal reflux disease without esophagitis; E11.9 Type 2 diabetes mellitus without complications; Z79.84 Long term (current) use of oral hypoglycemic drugs; Z88.0 Allergy status to penicillin
CPT/HCPCS: 80053; 81025; 82948; 84132; 84132 91; 85025; 88304; G0378; J0131; J0330; J0744; J1100; J1170; J2250; J2405; J2710; J2765; J3010; J3480; J7120; J7643; Q0175; S0020

== ENCOUNTER 2018-01-29 19:41 | Emergency (ER) | payer OTHER ==
[~2018-01-29] VITALS: Ht 167.6 cm; Wt 72.6 kg
[~2018-01-29 19:41] MED LIST changes: +PROMETHAZINE HC25 M1 PO
[2018-01-29 20:26] LABS: HEMATOCRIT 35.9 % (36.0-46.0); HEMOGLOBIN 12.2 G/DL (11.9-15.5); MCH 26.8 PG (29.0-34.0); MCV 78.7 FL (83-99); PLATELET COUNT 421 K/uL (156-360); RBC DIS.WIDTH-CV 13.9 % (11.8-14.6); RBC DIS.WIDTH-SD 39.9 % (39-53); RED BLOOD COUNT 4.56 M/uL (3.80-5.20); WHITE BLOOD COUNT 8.9 K/uL (4.1-10.2)
[2018-01-29 20:42] LABS: ALBUMIN 4.1 g/dL (3.2-4.8); CHLORIDE 96 mEq/L (99-109); SODIUM 141 mEq/L (136-147)
[2018-01-29 20:44] LABS: GLUCOSE 92 mg/dL (70-99)
[2018-01-29 20:44] LABS: APPEARANCE CLEAR ((CLEAR)); BILIRUBIN NEGATIVE; BLOOD NEGATIVE; COLOR YELLOW ((YELLOW)); GLUCOSE (STRIP) NEGATIVE; KETONES 20; LEUKOCYTES NEGATIVE; NITRITE NEGATIVE; PROTEIN (STRIP) 30; SPECIFIC GRAVITY 1.012 (1.000-1.030); UCUL ADDED? NO; UROBILINOGEN 0.2 MG/DL (0.2-1.0)
[2018-01-29 20:45] LABS: TOTAL PROTEIN 7.2 g/dL (6.4-8.3)
[2018-01-29 20:46] LABS: TOTAL BILIRUBIN 0.6 mg/dL (0.0-1.0)
[2018-01-29 20:48] LABS: ALKALINE PHOSPHATASE 59 IU/L (3-129); CREATININE 0.8 mg/dL (0.6-1.3); GFR ESTIMATE (CALCULATED) > 59 mL/min/
[2018-01-29 20:49] LABS: UREA NITROGEN (BUN) 4 mg/dL (9-23)
[2018-01-29 20:50] LABS: AST (GOT) 11 IU/L (2-34)
[2018-01-29 20:51] LABS: ALT (GPT) 24 IU/L (3-49); LIPASE 33 U/L (1.0-51.0)
[2018-01-29 21:00] LABS: QUANTITATIVE HCG < 4.0 MIU/ML
[2018-01-30 00:03] VITALS: BP 168/110
== END 2018-01-30 00:04 | disposition home or self-care (01) ==
LOC: EME 19:41
DX: R10.11 Right upper quadrant pain (principal); K21.9 Gastro-esophageal reflux disease without esophagitis; E11.9 Type 2 diabetes mellitus without complications; Z79.84 Long term (current) use of oral hypoglycemic drugs; Z90.49 Acquired absence of other specified parts of digestive tract; Z88.0 Allergy status to penicillin
CPT/HCPCS: 74177; 80053; 81003; 83690; 84702; 85027; 99281; 99285; J2405; J7030